=== PATIENT | male | born 1990 | race African-American/Black ===

== ENCOUNTER 2016-08-19 19:10 | Emergency (ER) | payer BC ==
[~2016-08-19] VITALS: Ht 170.2 cm; Wt 94.6 kg
[~2016-08-19 19:10] MED LIST: DILANTIN100 MG PO; FLEXERIL OR; HYDROCO/APAP1 TA9 PO; KEPPRA500 MG OR; KEPPRA750 M1 PO; LEVETIRACETA500 MG OR; LEVETIRACETAM500 MG PO; LORTAB 5 OR; NAPROSYN500 MG OR; NO; TYLENOL500 MG OR
[2016-08-19] MEDS ORDERED: PERCOCET 5/325M1 TAB PO (19:42)
[2016-08-19 19:48] VITALS: BP 141/88
== END 2016-08-19 19:50 | disposition home or self-care (01) | DRG 950 ==
LOC: ED 19:10
DX: S60.221D Contusion of right hand, subsequent encounter (principal); M79.641 Pain in right hand; W22.8XXD Striking against or struck by other objects, subsequent encounter

== ENCOUNTER 2016-09-07 22:15 | Emergency (ER) | payer BC ==
[~2016-09-07] VITALS: Ht 170.2 cm; Wt 95.0 kg
[~2016-09-07 22:15] MED LIST changes: +PERCOCET 5/325M1 TAB PO
[2016-09-07 23:08] LABS: URINE BILIRUBIN - DIPSTICK NEGATIVE (NEGATIVE); URINE BLOOD DIPSTICK NEGATIVE (NEGATIVE); URINE CLARITY CLEAR; URINE COLOR YELLOW; URINE GLUCOSE - DIPSTICK NEGATIVE (NEGATIVE); URINE KETONE TRACE mg/dL (NEGATIVE); URINE LEUK ESTERASE NEGATIVE (NEGATIVE); URINE NITRITE - DIPSTICK NEGATIVE (Negative); URINE PH 5.5 (4.5-8.0); URINE PROTEIN - DIPSTICK NEGATIVE (NEG-TRACE); URINE SPECIFIC GRAVITY >=1.030
[2016-09-07] MEDS ORDERED: NAPROSYN500 MG PO (23:22)
[2016-09-07 23:45] LABS: HEMATOCRIT 44.7 % (39.0-50.0); HEMOGLOBIN 15.2 g/dl (14.0-18.0); IMMATURE GRANULOCYTES 0.4 % (0.0-1.0); MEAN CELL VOLUME 91.4 fL CALC (80.0-100.0); MEAN CORPUSCULAR HGB 31.1 pG CALC (26.0-32.0); NEUT# 3.32 thou/uL (1.82-7.42); RED BLOOD COUNT 4.89 mill/uL (4.70-6.10); RED CELL DISTRI WIDTH 13.3 % (11.5-15.5)
[2016-09-08 00:17] LABS: ALBUMIN 4.1 g/dL (3.2-5.0); ALKALINE PHOSPHATASE 106 u/l (38-126); ANION GAP 10 (6-22 (CALC)); BILIRUBIN, TOTAL 0.4 mg/dL (0.0-1.4); BUN 11 mg/dL (9-20); BUN/CREATININE RATIO 10 (12-20 (CALC)); CALCIUM 9.2 mg/dL (8.4-10.2); CARBON DIOXIDE 26 mmol/l (22-30); CHLORIDE 105 mmol/l (95-108); CREATININE 1.1 mg/dL (0.7-1.3); GFR > 60 ML/MIN (>=60 (CALC)); GFR FOR AFR.AMER. > 60 ML/MIN (>=60 (CALC)); GLUCOSE 83 mg/dL (75-110); POTASSIUM 3.9 mmol/l (3.5-5.1); SGOT/AST 33 u/l (17-59); SGPT/ALT 37 u/l (21-72); SODIUM 137 mmol/l (137-146); TOTAL PROTEIN 7.1 g/dL (6.3-8.2)
[2016-09-08] MEDS ORDERED: ULTRAM50 M1 PO (01:29)
[2016-09-08] MEDS ORDERED: NAPROSYN500 MG PO (01:42)
[2016-09-08 02:00] VITALS: BP 120/78
== END 2016-09-08 02:10 | disposition home or self-care (01) | DRG 605 ==
LOC: ED 22:15
PROVIDERS: Emergency Medicine
DX: S30.1XXA Contusion of abdominal wall, initial encounter (principal); F17.290 Nicotine dependence, other tobacco product, uncomplicated; X58.XXXA Exposure to other specified factors, initial encounter; Y93.17 Activity, water skiing and wake boarding

== ENCOUNTER 2016-11-27 17:18 | Emergency (ER) | payer BC ==
[~2016-11-27] VITALS: Ht 170.2 cm; Wt 95.0 kg
[~2016-11-27 17:18] MED LIST changes: +NAPROSYN500 MG PO; +ULTRAM50 M1 PO
[2016-11-27 18:14] LABS: URINE BILIRUBIN - DIPSTICK NEGATIVE (NEGATIVE); URINE BLOOD DIPSTICK NEGATIVE (NEGATIVE); URINE CLARITY CLEAR; URINE COLOR YELLOW; URINE GLUCOSE - DIPSTICK NEGATIVE (NEGATIVE); URINE KETONE NEGATIVE (NEGATIVE); URINE LEUK ESTERASE NEGATIVE (NEGATIVE); URINE NITRITE - DIPSTICK NEGATIVE (Negative); URINE PROTEIN - DIPSTICK NEGATIVE (NEG-TRACE)
[2016-11-27] MEDS ORDERED: TRAMADOL HYDROC50 MG PO (18:57)
[2016-11-27] MEDS ORDERED: FLEXERIL PO (18:57)
[2016-11-27] MEDS ORDERED: MOTRIN800 MG PO (18:57)
[2016-11-27] MEDS ORDERED: LORTAB 5-325 MG1 TAB PO (20:11)
[2016-11-27 20:17] VITALS: BP 126/78
== END 2016-11-27 20:25 | disposition home or self-care (01) | DRG 605 ==
LOC: ED 17:18
PROVIDERS: Emergency Medicine
DX: S30.0XXA Contusion of lower back and pelvis, initial encounter (principal); W51.XXXA Accidental striking against or bumped into by another person, initial encounter; Y93.62 Activity, american flag or touch football; Y92.89 Other specified places as the place of occurrence of the external cause

== ENCOUNTER 2017-04-17 03:31 | Emergency (ER) | payer OTHER ==
[~2017-04-17] VITALS: Ht 172.7 cm; Wt 90.6 kg
[~2017-04-17 03:31] MED LIST changes: +FLEXERIL PO; +LORTAB 5-325 MG1 TAB PO; +MOTRIN800 MG PO; +TRAMADOL HYDROC50 MG PO
[2017-04-17] MEDS ORDERED: NAPROSYN500 MG PO (04:03)
[2017-04-17 04:07] VITALS: BP 131/90
== END 2017-04-17 04:15 | disposition home or self-care (01) | DRG 538 ==
LOC: ED 03:31
DX: S76.912A Strain of unspecified muscles, fascia and tendons at thigh level, left thigh, initial encounter (principal); X50.3XXA Overexertion from repetitive movements, initial encounter; Y93.67 Activity, basketball; Y92.22 Religious institution as the place of occurrence of the external cause

== ENCOUNTER 2017-04-28 09:45 | Emergency (ER) | payer SELFPAY ==
[~2017-04-28] VITALS: Ht 172.7 cm; Wt 92.6 kg
[2017-04-28] MEDS ORDERED: FLEXERIL PO (10:06)
[2017-04-28 10:08] VITALS: BP 135/84
[2017-04-29] MEDS ORDERED: NAPROSYN500 MG PO (17:17)
== END 2017-04-28 10:08 | disposition home or self-care (01) | DRG 538 ==
LOC: ED 09:45
DX: S76.812A Strain of other specified muscles, fascia and tendons at thigh level, left thigh, initial encounter (principal); X58.XXXA Exposure to other specified factors, initial encounter; Y93.67 Activity, basketball

== ENCOUNTER 2017-04-29 08:54 | Emergency (ER) | payer SELFPAY ==
[~2017-04-29] VITALS: Ht 172.7 cm; Wt 95.0 kg
[2017-04-29 09:50] LABS: URINE BILIRUBIN - DIPSTICK NEGATIVE (NEGATIVE); URINE BLOOD DIPSTICK SMALL (NEGATIVE); URINE COLOR YELLOW; URINE GLUCOSE - DIPSTICK NEGATIVE (NEGATIVE); URINE KETONE NEGATIVE (NEGATIVE); URINE LEUK ESTERASE NEGATIVE (NEGATIVE); URINE NITRITE - DIPSTICK NEGATIVE (Negative); URINE PROTEIN - DIPSTICK 30 mg/dL (NEG-TRACE); URINE UROBILINOGEN - DIPSTICK 0.2 E.U./dL (0.2)
[2017-04-29 09:51] LABS: URINE CLARITY SL CLOUDY
[2017-04-29 09:52] LABS: BARBITURATES NEGATIVE (NEGATIVE); COCAINE NEGATIVE (NEGATIVE); METHADONE NEGATIVE (NEGATIVE); OXCYCODONE NEGATIVE (NEGATIVE); TETRAHYDROCANNABIONOL POSITIVE (NEGATIVE); TRICYLIC ANTIDEPRESSANTS NEGATIVE (NEGATIVE); URINE MUCUS MANY hpf (NONE-FEW)
[2017-04-29 09:59] LABS: HEMATOCRIT 49.7 % (39.0-50.0); HEMOGLOBIN 16.3 g/dl (14.0-18.0); IMMATURE GRANULOCYTES 1.2 % (0.0-1.0); MEAN CELL VOLUME 96.1 fL CALC (80.0-100.0); MEAN CORPUSCULAR HGB 31.5 pG CALC (26.0-32.0); MEAN CORPUSCULAR HGB CONC 32.8 g/L CALC (32.0-36.0); NEUT# 2.71 thou/uL (1.82-7.42); RED BLOOD COUNT 5.17 mill/uL (4.70-6.10)
[2017-04-29 10:28] LABS: ALBUMIN 4.5 g/dL (3.2-5.0); ALKALINE PHOSPHATASE 103 u/l (38-126); ANION GAP 27 (6-22 (CALC)); BILIRUBIN, TOTAL 0.6 mg/dL (0.0-1.4); BUN 17 mg/dL (9-20); BUN/CREATININE RATIO 14 (12-20 (CALC)); CALCIUM 9.5 mg/dL (8.4-10.2); CARBON DIOXIDE 14 mmol/l (22-30); CHLORIDE 107 mmol/l (95-108); CREATININE 1.3 mg/dL (0.7-1.3); GFR > 60 ML/MIN (>=60 (CALC)); GFR FOR AFR.AMER. > 60 ML/MIN (>=60 (CALC)); GLUCOSE 122 mg/dL (75-110); POTASSIUM 4.2 mmol/l (3.5-5.1); SGOT/AST 30 u/l (17-59); SGPT/ALT 28 u/l (21-72); SODIUM 144 mmol/l (137-146); TOTAL PROTEIN 7.3 g/dL (6.3-8.2)
[2017-04-29 10:54] VITALS: BP 135/74
[2017-04-29] MEDS ORDERED: NAPROSYN500 MG PO (17:17)
== END 2017-04-29 11:05 | disposition home or self-care (01) | DRG 101 ==
LOC: ED 08:54
PROVIDERS: Emergency Medicine
DX: G40.409 Other generalized epilepsy and epileptic syndromes, not intractable, without status epilepticus (principal); Z91.14 Patient's other noncompliance with medication regimen
CPT/HCPCS: J1953; J2060

== ENCOUNTER 2017-04-29 14:46 | Emergency (ER) | payer SELFPAY ==
[~2017-04-29] VITALS: Ht 172.7 cm; Wt 85.0 kg
[2017-04-29 17:16] VITALS: BP 119/71
[2017-04-29] MEDS ORDERED: NAPROSYN500 MG PO (17:17)
== END 2017-04-29 17:20 | disposition home or self-care (01) | DRG 552 ==
LOC: ED 14:46
DX: S13.9XXA Sprain of joints and ligaments of unspecified parts of neck, initial encounter (principal); S23.3XXA Sprain of ligaments of thoracic spine, initial encounter; G40.909 Epilepsy, unspecified, not intractable, without status epilepticus; W19.XXXA Unspecified fall, initial encounter

== ENCOUNTER 2017-05-14 01:58 | Emergency (ER) | payer SELFPAY ==
[~2017-05-14] VITALS: Ht 172.7 cm; Wt 95.5 kg
[2017-05-14 02:29] LABS: HEMATOCRIT 47.1 % (39.0-50.0); HEMOGLOBIN 15.9 g/dl (14.0-18.0); IMMATURE GRANULOCYTES 0.5 % (0.0-1.0); MEAN CELL VOLUME 92.7 fL CALC (80.0-100.0); MEAN CORPUSCULAR HGB 31.3 pG CALC (26.0-32.0); MEAN CORPUSCULAR HGB CONC 33.8 g/L CALC (32.0-36.0); NEUT# 3.79 thou/uL (1.82-7.42); RED BLOOD COUNT 5.08 mill/uL (4.70-6.10)
[2017-05-14 02:30] LABS: URINE BILIRUBIN - DIPSTICK NEGATIVE (NEGATIVE); URINE BLOOD DIPSTICK SMALL (NEGATIVE); URINE COLOR YELLOW; URINE GLUCOSE - DIPSTICK NEGATIVE (NEGATIVE); URINE KETONE NEGATIVE (NEGATIVE); URINE LEUK ESTERASE NEGATIVE (NEGATIVE); URINE NITRITE - DIPSTICK NEGATIVE (Negative); URINE PH 5.5 (4.5-8.0); URINE PROTEIN - DIPSTICK TRACE mg/dL (NEG-TRACE); URINE UROBILINOGEN - DIPSTICK 0.2 E.U./dL (0.2)
[2017-05-14 02:37] LABS: BARBITURATES NEGATIVE (NEGATIVE); COCAINE NEGATIVE (NEGATIVE); METHADONE NEGATIVE (NEGATIVE); OXCYCODONE NEGATIVE (NEGATIVE); TETRAHYDROCANNABIONOL POSITIVE (NEGATIVE); TRICYLIC ANTIDEPRESSANTS NEGATIVE (NEGATIVE)
[2017-05-14 02:50] LABS: URINE CLARITY CLEAR; URINE TRANSITIONAL EPI. CELLS RARE hpf
[2017-05-14 03:01] LABS: ALBUMIN 4.8 g/dL (3.2-5.0); ALKALINE PHOSPHATASE 80 u/l (38-126); ANION GAP 24 (6-22 (CALC)); BILIRUBIN, TOTAL 0.3 mg/dL (0.0-1.4); BUN 16 mg/dL (9-20); BUN/CREATININE RATIO 13 (12-20 (CALC)); CALCIUM 9.6 mg/dL (8.4-10.2); CARBON DIOXIDE 18 mmol/l (22-30); CHLORIDE 105 mmol/l (95-108); CREATININE 1.3 mg/dL (0.7-1.3); ETHYL ALCOHOL 0 mg/dl (0-30); GFR > 60 ML/MIN (>=60 (CALC)); GFR FOR AFR.AMER. > 60 ML/MIN (>=60 (CALC)); GLUCOSE 99 mg/dL (75-110); POTASSIUM 3.7 mmol/l (3.5-5.1); SGOT/AST 31 u/l (17-59); SGPT/ALT 34 u/l (21-72); SODIUM 143 mmol/l (137-146); TOTAL PROTEIN 7.6 g/dL (6.3-8.2)
[2017-05-14 04:08] VITALS: BP 123/66
[2017-05-14] MEDS ORDERED: KEPPRA1000 MG PO (15:46)
== END 2017-05-14 04:05 | disposition home or self-care (01) | DRG 101 ==
LOC: ED 01:58
PROVIDERS: Emergency Medicine
DX: G40.909 Epilepsy, unspecified, not intractable, without status epilepticus (principal); S09.90XA Unspecified injury of head, initial encounter; S00.83XA Contusion of other part of head, initial encounter; W06.XXXA Fall from bed, initial encounter; Y93.84 Activity, sleeping; Y92.003 Bedroom of unspecified non-institutional (private) residence as the place of occurrence of the external cause; Z91.19 Patient's noncompliance with other medical treatment and regimen

== ENCOUNTER 2017-05-14 15:32 | Emergency (ER) | payer SELFPAY ==
[~2017-05-14] VITALS: Ht 172.7 cm; Wt 94.8 kg
[2017-05-14] MEDS ORDERED: KEPPRA1000 MG PO (15:46)
[2017-05-14 15:59] VITALS: BP 127/84
== END 2017-05-14 16:16 | disposition home or self-care (01) | DRG 605 ==
LOC: ED 15:32
DX: S00.83XA Contusion of other part of head, initial encounter (principal); W06.XXXA Fall from bed, initial encounter; Y93.84 Activity, sleeping; Y92.003 Bedroom of unspecified non-institutional (private) residence as the place of occurrence of the external cause

== ENCOUNTER 2017-05-21 00:27 | Emergency (ER) | payer SELFPAY ==
[~2017-05-21] VITALS: Ht 172.7 cm; Wt 96.4 kg
[~2017-05-21 00:27] MED LIST changes: +KEPPRA1000 MG PO
[2017-05-21] MEDS ORDERED: PREDNISONE50 MG PO (00:39)
[2017-05-21] MEDS ORDERED: CIMETIDINE400 M1 PO (00:39)
[2017-05-21] MEDS ORDERED: BENADRYL 50MG C50 MG PO (00:39)
[2017-05-21 04:36] VITALS: BP 115/73
== END 2017-05-21 04:36 | disposition home or self-care (01) | DRG 916 ==
LOC: ED 00:27
DX: T78.3XXA Angioneurotic edema, initial encounter (principal); L27.2 Dermatitis due to ingested food; T78.1XXA Other adverse food reactions, not elsewhere classified, initial encounter

== ENCOUNTER 2017-09-16 08:05 | Emergency (ER) | payer BC, OTHER ==
[~2017-09-16] VITALS: Ht 172.7 cm; Wt 100.0 kg
[~2017-09-16 08:05] MED LIST changes: +BENADRYL 50MG C50 MG PO; +CIMETIDINE400 M1 PO; +PREDNISONE50 MG PO
[2017-09-16] MEDS ORDERED: MOTRIN800 MG PO (08:42)
[2017-09-16] MEDS ORDERED: PAIN RELIEF325 MG PO (08:42)
[2017-09-16] MEDS ORDERED: FLEXERIL PO (09:21)
[2017-09-16] MEDS ORDERED: AMLODIPINE10 MG PO (09:21)
[2017-09-16] MEDS ORDERED: TRAMADOL HYDROC50 MG PO (09:21)
[2017-09-16] MEDS ORDERED: PREDNISONE50 MG PO (09:21)
[2017-09-16 09:44] VITALS: BP 127/79
== END 2017-09-16 09:44 | disposition home or self-care (01) | DRG 552 ==
LOC: ED 08:05
DX: M54.5 Low back pain (principal); G40.909 Epilepsy, unspecified, not intractable, without status epilepticus

== ENCOUNTER 2017-10-05 18:10 | Emergency (ER) | payer BC, OTHER ==
[~2017-10-05] VITALS: Ht 172.7 cm; Wt 102.0 kg
[~2017-10-05 18:10] MED LIST changes: +AMLODIPINE10 MG PO; +PAIN RELIEF325 MG PO
[2017-10-05] MEDS ORDERED: FLEXERIL PO (18:40)
[2017-10-05 18:57] VITALS: BP 125/74
== END 2017-10-05 18:57 | disposition home or self-care (01) | DRG 538 ==
LOC: ED 18:10
DX: S76.911A Strain of unspecified muscles, fascia and tendons at thigh level, right thigh, initial encounter (principal); S76.912A Strain of unspecified muscles, fascia and tendons at thigh level, left thigh, initial encounter; G40.909 Epilepsy, unspecified, not intractable, without status epilepticus; X50.9XXA Other and unspecified overexertion or strenuous movements or postures, initial encounter; Y93.89 Activity, other specified; Y92.009 Unspecified place in unspecified non-institutional (private) residence as the place of occurrence of the external cause

== ENCOUNTER 2018-01-11 20:54 | Emergency (ER) | payer BC, OTHER ==
[~2018-01-11] VITALS: Ht 172.7 cm; Wt 100.0 kg
[2018-01-11] MEDS ORDERED: PREDNISONE10 MG PO (21:23)
[2018-01-11 22:00] VITALS: BP 137/82
== END 2018-01-11 22:00 | disposition home or self-care (01) | DRG 607 ==
LOC: ED 20:54
DX: L50.0 Allergic urticaria (principal); G40.909 Epilepsy, unspecified, not intractable, without status epilepticus

== ENCOUNTER 2018-01-20 20:14 | Emergency (ER) | payer OTHER ==
[~2018-01-20] VITALS: Ht 172.7 cm; Wt 102.2 kg
[~2018-01-20 20:14] MED LIST changes: +PREDNISONE10 MG PO
[2018-01-20] MEDS ORDERED: KEFLEX500 MG PO (20:49)
[2018-01-20] MEDS ORDERED: BACITRACIN3.5 GM TOP (20:49)
[2018-01-20 21:00] VITALS: BP 130/77
== END 2018-01-20 21:00 | disposition home or self-care (01) | DRG 605 ==
LOC: ED 20:14
DX: S91.114A Laceration without foreign body of right lesser toe(s) without damage to nail, initial encounter (principal); G40.909 Epilepsy, unspecified, not intractable, without status epilepticus; W22.8XXA Striking against or struck by other objects, initial encounter; Y93.89 Activity, other specified; Y92.007 Garden or yard of unspecified non-institutional (private) residence as the place of occurrence of the external cause

== ENCOUNTER 2018-03-06 06:53 | Emergency (ER) | payer OTHER ==
[~2018-03-06] VITALS: Ht 170.2 cm; Wt 95.6 kg
[~2018-03-06 06:53] MED LIST changes: +BACITRACIN3.5 GM TOP; +KEFLEX500 MG PO
[2018-03-06] MEDS ORDERED: TORADOL PO (08:18)
[2018-03-06] MEDS ORDERED: FLEXERIL PO (08:18)
[2018-03-06 08:22] VITALS: BP 135/85
== END 2018-03-06 08:31 | disposition home or self-care (01) | DRG 538 ==
LOC: ED 06:53
DX: S76.011A Strain of muscle, fascia and tendon of right hip, initial encounter (principal); G40.909 Epilepsy, unspecified, not intractable, without status epilepticus; W18.30XA Fall on same level, unspecified, initial encounter; Y93.67 Activity, basketball; Y92.830 Public park as the place of occurrence of the external cause

== ENCOUNTER 2018-05-09 21:02 | Emergency (ER) | payer OTHER ==
[~2018-05-09] VITALS: Ht 170.2 cm; Wt 98.0 kg
[~2018-05-09 21:02] MED LIST changes: +TORADOL PO
[2018-05-09] MEDS ORDERED: PREDNISONE50 MG PO (22:53)
[2018-05-09] MEDS ORDERED: BENADRYL 50MG C50 MG PO (22:53)
[2018-05-09 23:03] VITALS: BP 96/53
== END 2018-05-09 23:28 | disposition home or self-care (01) | DRG 607 ==
LOC: ED 21:02
DX: L50.0 Allergic urticaria (principal); L27.2 Dermatitis due to ingested food; J34.89 Other specified disorders of nose and nasal sinuses

== ENCOUNTER 2018-05-14 17:40 | Emergency (ER) | payer OTHER ==
[~2018-05-14] VITALS: Ht 170.2 cm; Wt 97.8 kg
[2018-05-14] MEDS ORDERED: VOLTAREN - GENE75 MG PO (18:12)
[2018-05-14] MEDS ORDERED: FLEXERIL PO (18:12)
[2018-05-14 18:24] VITALS: BP 138/81
== END 2018-05-14 18:26 | disposition home or self-care (01) | DRG 563 ==
LOC: ED 17:40
DX: S39.012A Strain of muscle, fascia and tendon of lower back, initial encounter (principal); M54.5 Low back pain; X50.0XXA Overexertion from strenuous movement or load, initial encounter; Y93.89 Activity, other specified; Y92.89 Other specified places as the place of occurrence of the external cause

== ENCOUNTER 2018-11-15 18:25 | Emergency (ER) | payer BC ==
[~2018-11-15] VITALS: Ht 170.2 cm; Wt 80.0 kg
[~2018-11-15 18:25] MED LIST changes: +VOLTAREN - GENE75 MG PO
[2018-11-15] MEDS ORDERED: LEVETIRACETAM750 M1 PO (18:50)
[2018-11-15] MEDS ORDERED: TORADOL PO (19:02)
[2018-11-15 19:15] VITALS: BP 122/78
== END 2018-11-15 19:15 | disposition home or self-care (01) | DRG 563 ==
LOC: ED 18:25
PROC: 2W3VXYZ Immobilization of Left Toe using Other Device (ICD-10-PCS; principal; 2018-11-15)
DX: S93.515A Sprain of interphalangeal joint of left lesser toe(s), initial encounter (principal); X50.1XXA Overexertion from prolonged static or awkward postures, initial encounter; Y93.67 Activity, basketball; Y92.009 Unspecified place in unspecified non-institutional (private) residence as the place of occurrence of the external cause

== ENCOUNTER 2019-07-05 | Emergency (ER) | payer BC, OTHER ==
[~2019-07-05] MED LIST changes: +LEVETIRACETAM750 M1 PO
[2019-07-05] MEDS ORDERED: KEPPRA XR750 MG PO (15:52)
== END 2019-07-05 16:28 | disposition home or self-care (01) | DRG 563 ==
DX: S39.011A Strain of muscle, fascia and tendon of abdomen, initial encounter (principal); G40.909 Epilepsy, unspecified, not intractable, without status epilepticus; F17.290 Nicotine dependence, other tobacco product, uncomplicated; X50.0XXA Overexertion from strenuous movement or load, initial encounter; Y93.67 Activity, basketball

== ENCOUNTER 2019-12-03 16:05 | Emergency (ER) | payer OTHER ==
[~2019-12-03] VITALS: Ht 170.2 cm; Wt 93.0 kg
[~2019-12-03 16:05] MED LIST changes: +KEPPRA XR750 MG PO
[2019-12-03] MEDS ORDERED: LAMISIL AT1 % EX ×2 (17:21)
[2019-12-03 17:26] VITALS: BP 121/78
== END 2019-12-03 17:26 | disposition home or self-care (01) | DRG 607 ==
LOC: ED 16:05
DX: B35.3 Tinea pedis (principal)

== ENCOUNTER 2019-12-25 07:15 | Emergency (ER) | payer OTHER ==
[~2019-12-25] VITALS: Ht 170.2 cm; Wt 100.0 kg
[~2019-12-25 07:15] MED LIST changes: +LAMISIL AT1 % EX
[2019-12-25] MEDS ORDERED: CLINDAMYCIN300 M1 PO (07:28)
[2019-12-25 07:35] VITALS: BP 118/66
== END 2019-12-25 07:35 | disposition home or self-care (01) | DRG 159 ==
LOC: ED 07:15
DX: K08.89 Other specified disorders of teeth and supporting structures (principal); G40.909 Epilepsy, unspecified, not intractable, without status epilepticus

== ENCOUNTER 2020-03-03 07:20 | Emergency (ER) | payer OTHER ==
[~2020-03-03] VITALS: Ht 170.2 cm; Wt 90.0 kg
[~2020-03-03 07:20] MED LIST changes: +CLINDAMYCIN300 M1 PO
[2020-03-03] MEDS ORDERED: NAPROXEN500 MG PO (07:42)
[2020-03-03] MEDS ORDERED: FLEXERIL PO (07:42)
[2020-03-03 07:53] VITALS: BP 125/85
== END 2020-03-03 07:53 | disposition home or self-care (01) | DRG 914 ==
LOC: ED 07:20
DX: S09.93XA Unspecified injury of face, initial encounter (principal); S49.82XA Other specified injuries of left shoulder and upper arm, initial encounter; G40.909 Epilepsy, unspecified, not intractable, without status epilepticus; W01.0XXA Fall on same level from slipping, tripping and stumbling without subsequent striking against object, initial encounter; Y92.009 Unspecified place in unspecified non-institutional (private) residence as the place of occurrence of the external cause

== ENCOUNTER 2020-08-07 22:46 | Emergency (ER) | payer OTHER ==
[~2020-08-07] VITALS: Ht 170.2 cm; Wt 93.1 kg
[~2020-08-07 22:46] MED LIST changes: +NAPROXEN500 MG PO
[2020-08-07] MEDS ORDERED: MEDDOSEPAK PO (23:55)
[2020-08-07] MEDS ORDERED: EPIPEN 2-P0.3 MG/0.3 IM (23:55)
[2020-08-08 00:01] VITALS: BP 164/93
== END 2020-08-08 00:15 | disposition home or self-care (01) | DRG 101 ==
LOC: ED 22:46
DX: G40.909 Epilepsy, unspecified, not intractable, without status epilepticus (principal); F17.200 Nicotine dependence, unspecified, uncomplicated; T78.1XXA Other adverse food reactions, not elsewhere classified, initial encounter; R22.0 Localized swelling, mass and lump, head; Z91.013 Allergy to seafood; X58.XXXA Exposure to other specified factors, initial encounter

== ENCOUNTER 2020-11-21 17:34 | Emergency (ER) | payer OTHER ==
[~2020-11-21] VITALS: Ht 170.2 cm; Wt 92.0 kg
[~2020-11-21 17:34] MED LIST changes: +EPIPEN 2-P0.3 MG/0.3 IM; +MEDDOSEPAK PO
[2020-11-21 18:40] VITALS: BP 120/70
== END 2020-11-21 18:40 | disposition home or self-care (01) | DRG 563 ==
LOC: ED 17:34
DX: S63.502A Unspecified sprain of left wrist, initial encounter (principal); G40.909 Epilepsy, unspecified, not intractable, without status epilepticus; F17.200 Nicotine dependence, unspecified, uncomplicated; W18.30XA Fall on same level, unspecified, initial encounter; Y93.67 Activity, basketball; Y92.009 Unspecified place in unspecified non-institutional (private) residence as the place of occurrence of the external cause

== ENCOUNTER 2021-04-12 07:26 | Emergency (ER) | payer OTHER ==
[~2021-04-12] VITALS: Ht 170.2 cm; Wt 86.0 kg
[2021-04-12] MEDS ORDERED: AMOXICILLIN500 MG PO (08:24)
[2021-04-12] MEDS ORDERED: LORTAB 1010 MG PO (08:24)
[2021-04-12 08:29] VITALS: BP 135/85
== END 2021-04-12 08:35 | disposition home or self-care (01) | DRG 158 ==
LOC: ED 07:26
DX: K04.7 Periapical abscess without sinus (principal); M84.48XA Pathological fracture, other site, initial encounter for fracture; G40.909 Epilepsy, unspecified, not intractable, without status epilepticus

== ENCOUNTER 2021-06-11 07:14 | Emergency (ER) | payer OTHER ==
[~2021-06-11] VITALS: Ht 170.2 cm; Wt 88.0 kg
[~2021-06-11 07:14] MED LIST changes: +AMOXICILLIN500 MG PO; +LORTAB 1010 MG PO
[2021-06-11] MEDS ORDERED: GENTAMICIN SULF5 ML OS (08:50)
[2021-06-11 09:08] VITALS: BP 120/78
== END 2021-06-11 09:08 | disposition home or self-care (01) | DRG 125 ==
LOC: ED 07:14
DX: S00.212A Abrasion of left eyelid and periocular area, initial encounter (principal); G40.909 Epilepsy, unspecified, not intractable, without status epilepticus; W34.010A Accidental discharge of airgun, initial encounter; Y92.009 Unspecified place in unspecified non-institutional (private) residence as the place of occurrence of the external cause

== ENCOUNTER 2021-06-18 11:39 | Emergency (ER) | payer OTHER ==
[~2021-06-18] VITALS: Ht 170.2 cm; Wt 64.0 kg
[~2021-06-18 11:39] MED LIST changes: +GENTAMICIN SULF5 ML OS
[2021-06-18 11:40] VITALS: BP 134/86
[2021-06-18] MEDS ORDERED: OMNI-PAC300 MG PO (13:22)
== END 2021-06-18 13:40 | disposition home or self-care (01) | DRG 603 ==
LOC: ED 11:39
DX: L03.114 Cellulitis of left upper limb (principal); S61.412A Laceration without foreign body of left hand, initial encounter; G40.909 Epilepsy, unspecified, not intractable, without status epilepticus; F17.200 Nicotine dependence, unspecified, uncomplicated; W26.0XXA Contact with knife, initial encounter; Y93.G1 Activity, food preparation and clean up; Y92.000 Kitchen of unspecified non-institutional (private) residence as the place of occurrence of the external cause

== ENCOUNTER 2021-10-03 17:41 | Emergency (ER) | payer SELFPAY ==
[~2021-10-03 17:41] MED LIST changes: +OMNI-PAC300 MG PO
== END 2021-10-03 18:14 | disposition left against medical advice (07) | DRG 951 ==
LOC: ED 17:41 → LWOBS 18:14
DX: Z53.21 Procedure and treatment not carried out due to patient leaving prior to being seen by health care provider (principal)

== ENCOUNTER 2022-11-13 07:40 | Emergency (ER) | payer OTHER ==
[~2022-11-13] VITALS: Ht 170.2 cm; Wt 97.1 kg
[2022-11-13 07:54] VITALS: BP 125/76
[2022-11-13] MEDS ORDERED: OMNI-PAC300 MG PO (10:13)
[2022-11-13] MEDS ORDERED: MUPIROCIN2 % EX (10:13)
== END 2022-11-13 10:30 | disposition home or self-care (01) | DRG 605 ==
LOC: ED 07:40
DX: S61.217A Laceration without foreign body of left little finger without damage to nail, initial encounter (principal); S60.042A Contusion of left ring finger without damage to nail, initial encounter; G40.909 Epilepsy, unspecified, not intractable, without status epilepticus; F17.290 Nicotine dependence, other tobacco product, uncomplicated; W26.0XXA Contact with knife, initial encounter; Y93.89 Activity, other specified; Y92.009 Unspecified place in unspecified non-institutional (private) residence as the place of occurrence of the external cause; W22.09XA Striking against other stationary object, initial encounter